=== PATIENT | male | born 1985 | race Caucasian/White ===

== ENCOUNTER 2019-10-16 17:58 | Emergency (ER) | payer SELFPAY ==
--- NOTE | 2019-10-16 18:33 | ER Document Report ---
ED Medical Screen (RME) - General Chief Complaint: Anxiety Stated Complaint: ANXIETY Time Seen by Provider: 10/16/19 18:27 Mode of Arrival: Ambulatory Information source: Patient Notes: 33-year-old male presented to ED for a anxiety attack while at work. He is from out of town and is now working on the [employer] in this area. He states he was having chest pain and feeling very weak while at work. States he was in the he was in the [employer] in the back speaking with the manager bar when he told the manager bar that he was having hard time breathing and he was chest was hurting and he states the manager bar threw him out of the back and then called 911. EMS stated when they found him he was laying outside at the [employer]. His glucose was 120 and according to EMS he was stating that the street signs were talking to him. He states while he was laying on the ground at the [employer] someone spilled some form of green hose on him and that is lasting he remembers. I have greeted and performed a rapid initial assessment of this patient. A comprehensive ED assessment and evaluation of the patient, analysis of test results and completion of medical decision making process will be conducted by an additional ED providers. - Related Data Allergies/Adverse Reactions: No Known Allergies Allergy (Verified 10/16/19 18:27)
[2019-10-16 18:40] VITALS: BP 135/81
--- NOTE | 2019-10-16 19:24 | ER Document Report ---
ED General - General Chief Complaint: Anxiety Stated Complaint: ANXIETY Time Seen by Provider: 10/16/19 18:27 Mode of Arrival: Ambulatory TRAVEL OUTSIDE OF THE [place] IN LAST 30 DAYS: No - HPI Notes: Mr. Sandy is a 33-year-old male with a chief complaint of transient altered mental status. This gentleman lives in [place] and is working with a traveling paint crew. 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 He admits that he has been smoking a large amount of marijuana every day and has been smoking today. He also expresses concern that 1 of the other individuals with his work crew might have slipped some kind of an adult run into a bottle of water he was drinking from earlier. The patient apparently gave the appearance of having hallucinations and the resident manager of the fast [employer] restaurant called EMS to the scene. EMS noted that patient was lying behind the building on the ground when they arrived and reported that look like the street signs were waving back and forth. They did not administer any medications to him but transported him here. Patient says he has had one similar episode over 5 years ago and at that time he was told that he had a panic attack. He currently denies any homicidal/suicidal ideations. He denies consumption of alcohol. He denies taking illicit drugs other than marijuana. He denies any prior mental health history. He says that he was "seeing some odd things" earlier with regard to the street signs but says this is all resolved since he arrived here. He expresses his desire to leave the premises without further evaluation at this time. - Related Data Allergies/Adverse Reactions: No Known Allergies Allergy (Verified 10/16/19 18:27) Past Medical History - General Information source: Patient - Social History Smoking Status: Current Every Day Smoker Chew tobacco use (# tins/day): No Frequency of alcohol use: None Drug Abuse: Cocaine, Marijuana Family History: Reviewed & Not Pertinent Patient has suicidal ideation: No Patient has homicidal ideation: No Review of Systems - Review of Systems Notes: Constitutional: Negative for fever. HENT: Negative for sore throat. Eyes: Negative for visual changes. Cardiovascular: No current chest pain. Respiratory: Negative for shortness of breath. Gastrointestinal: Negative for abdominal pain, vomiting or diarrhea. Genitourinary: Negative for dysuria. Musculoskeletal: Negative for back pain. Skin: Negative for rash. Neurological: Negative for headaches, weakness or numbness. 10 point ROS negative except as marked above and in HPI. Physical Exam - Vital signs Vitals: Temp Pulse Resp BP Pulse Ox 98.1 F 71 16 135/82 H 100 10/16/19 18:27 10/16/19 18:27 10/16/19 18:27 10/16/19 18:27 10/16/19 18:27 - Notes Notes: GENERAL: Well-developed well-nourished appearing mildly anxious but otherwise in no acute distress. SKIN: Good turgor no rashes. HEAD: Normocephalic atraumatic. EYES: PERRLA. Conjunctivae and sclerae clear. EARS: CANALS AND TMS CLEAR. NOSE: CLEAR. MOUTH: Moist mucosa. Good dentition. No stridor or edema. No drooling. NECK: Supple. No masses or thyromegaly. No adenopathy. Carotids 2+ without bruits. No JVD. BACK: Symmetrical without tenderness. CHEST: Respirations unlabored. Breath sounds clear and symmetrical. HEART: Regular rhythm. No murmur gallop or rub. ABDOMEN: Soft nontender without masses, organomegaly or rebound. Bowel sounds normally active. No bruits. GENITALIA: Deferred. EXTREMITIES: No edema. No calf tenderness. Cap refill less than 1.5 seconds. Dorsalis pedis and posterior tibial pulses 3+ and symmetrical. NEUROLOGICAL: GCS 15. Alert and oriented x3. Normal gait. Fluent speech. Cranial nerves II through XII intact. Sensorimotor and cerebellar normal. Normal tone. Course - Re-evaluation Re-evalutation: 10/16/19 19:29 Patient expresses desire to leave at this time and does not want blood work, urine testing or EKG. We talked about potential risks of leaving AGAINST MEDICAL ADVICE. At this time however he is fully oriented and appears competent to make his own decision. I have allowed him to sign out AGAINST MEDICAL ADVICE and advised him that he may return here immediately for reevaluation should he change his mind. Strongly advised him against smoking marijuana or using other illicit substances. - Vital Signs Vital signs: Temp Pulse Resp BP Pulse Ox 98.1 F 71 16 135/81 H 100 10/16/19 18:33 10/16/19 18:33 12/07/19 18:33 10/16/19 18:33 10/16/19 18:33 Discharge - Discharge Clinical Impression: Transient altered mental status Condition: Stable Disposition: AGAINST MEDICAL ADVICE Instructions: Anxiety (OM) Additional Instructions: Do not smoke marijuana. Return here as needed for new or worsening symptoms or if you wish reevaluation or further evaluation.
== END 2019-10-16 19:34 | disposition left against medical advice (07) ==
LOC: ER 17:58
DX: R41.82 Altered mental status, unspecified (principal); F41.9 Anxiety disorder, unspecified; R00.2 Palpitations; F12.90 Cannabis use, unspecified, uncomplicated; F17.200 Nicotine dependence, unspecified, uncomplicated
CPT/HCPCS: 99283

== ENCOUNTER 2019-10-16 19:47 | Emergency (ER) | payer SELFPAY ==
[2019-10-16 20:56] LABS: APPEARANCE,URINE CLEAR; BILIRUBIN,URINE NEGATIVE (NEGATIVE); COLOR,URINE YELLOW; GLUCOSE, URINE NEGATIVE (NEGATIVE); KETONES,URINE 20 mg/dL (NEGATIVE); LEUKOCYTE ESTERASE,URINE NEGATIVE (NEGATIVE); NITRITE,URINE NEGATIVE (NEGATIVE); PROTEIN,URINE NEGATIVE (NEGATIVE); URINE SPECIFIC GRAVITY 1.021
[2019-10-16 21:10] LABS: ABSOLUTE BASOPHILS # (AUTO) 0.1 10^3/uL (0.0-0.2); ABSOLUTE EOSINOPHILS # (AUTO) 0.3 10^3/uL (0.0-0.6); ABSOLUTE LYMPHOCYTES (AUTO) 1.8 10^3/uL (0.5-4.7); ABSOLUTE MONOCYTES (AUTO) 0.9 10^3/uL (0.1-1.4); ABSOLUTE NEUT (AUTO) 7.6 10^3/uL (1.7-8.2); BASOPHILS % (AUTO) 0.9 % (0-2); EOSINOPHILS % (AUTO) 3.1 % (0-6); HEMATOCRIT 45.1 % (37.9-51.0); HEMOGLOBIN 15.5 g/dL (13.5-17.0); LYMPHOCYTES % (AUTO) 16.7 % (13-45); MEAN CORPUSCULAR HEMOGLOBIN 28.7 pg (27.0-33.4); MEAN CORPUSCULAR HGB CONC 34.3 g/dL (32.0-36.0); MEAN CORPUSCULAR VOLUME 84 fl (80-97); MONOCYTES % (AUTO) 8.3 % (3-13); PLATELET COUNT 228 10^3/uL (150-450); RED BLOOD COUNT 5.38 10^6/uL (4.35-5.55); RED CELL DISTRIBUTION WIDTH 13.3 % (11.5-14.0); TOTAL CELLS COUNTED % (AUTO) 100 %; WHITE BLOOD COUNT 10.7 10^3/uL (4.0-10.5)
[2019-10-16 21:32] LABS: ALBUMIN 4.7 g/dL (3.5-5.0); ALKALINE PHOSPHATASE 79 U/L (38-126); ANION GAP 13 (5-19); ASPARTATE AMINO TRANSFERASE 40 U/L (17-59); BILIRUBIN,DIRECT 0.2 mg/dL (0.0-0.4); BILIRUBIN,TOTAL 1.2 mg/dL (0.2-1.3); BLOOD UREA NITROGEN 16 mg/dL (7-20); CALCIUM 9.6 mg/dL (8.4-10.2); CARBON DIOXIDE 24 mmol/L (22-30); CHLORIDE 104 mmol/L (98-107); GLUCOSE 91 mg/dL (75-110); TOTAL PROTEIN 8.1 g/dL (6.3-8.2)
--- NOTE | 2019-10-16 21:32 | ER Document Report ---
ED Psych Disorder / Suicide - General Chief Complaint: Psych Problem Stated Complaint: PSYCH EVAL Time Seen by Provider: 10/16/19 20:08 Notes: Kanu Guzman is a 33 yo m w/ PMH of anxiety brought into the ED by EMS for a panic attack. Patient states that he actually lives in [place] and works as a travel contractor. He is here at [employer] and they were supposed to be painting the railing. Patient states that he has been missing his dog excessively rate lately and wanted to get done with painting the railing as soon as possible so they can get back to [place]. He states that he started getting into an argument with his ship supervisor functional testing who then complained to his regular boss. In addition, the patient states that he has been excessively thirsty all day long but did not get much eat or drink so when he was drinking his vitamin water, it tasted slightly abnormal to him. He then got on the phone with his actual boss, not the third shift lieutenant and he started an argument. He felt the vitamin water tasted funny and could have been "drugged" with something in it. He endorses racing thoughts, shortness of breath and some difficulty breathing. This only lasted several minutes before it subsided. The people on scene called 911 and brought into the ED for evaluation. He denies any alcohol use. TRAVEL OUTSIDE OF THE [place] IN LAST 30 DAYS: No - Related Data Allergies/Adverse Reactions: No Known Allergies Allergy (Verified 10/16/19 18:27) Past Medical History - Social History Smoking Status: Current Every Day Smoker Frequency of alcohol use: Rare Drug Abuse: Marijuana Family History: Reviewed & Not Pertinent Patient has suicidal ideation: No Patient has homicidal ideation: No Review of Systems - Review of Systems Constitutional: See HPI EENT: No symptoms reported Cardiovascular: No symptoms reported Respiratory: No symptoms reported Gastrointestinal: No symptoms reported Genitourinary: No symptoms reported Male Genitourinary: No symptoms reported Musculoskeletal: No symptoms reported Skin: No symptoms reported Hematologic/Lymphatic: No symptoms reported Neurological/Psychological: See HPI Physical Exam - Vital signs Vitals: Temp Pulse Resp BP Pulse Ox 98.1 F 83 16 151/96 H 98 10/16/19 19:51 10/16/19 19:51 10/16/19 19:51 10/16/19 19:51 10/16/19 19:51 Course - Re-evaluation Re-evalutation: Patient is generally well-appearing nontoxic. Initial vitals notable for elevated blood pressure. 10/17/19 00:06 CBC CMP and UA within normal limits. Urine tox is positive for marijuana which the patient did endorse. It is unclear whether the patient's amphetamines is positive or negative as some other substances interfered and we received a call from the lab. Upon reevaluation, the patient is comfortably asleep and resting. At this point in time I do not feel that a psych consult is necessary as the patient does not seem to be a danger to himself or others. He denies SI, HI and does not show any evidence of hallucinations. Initially his story was slightly erratic however upon request for him to speak more clearly in a linear fashion, he was able to do so without any issues. Will allow to rest. When he awakes, will DC with return precautions. 10/17/19 01:32 Patient awoke from his nap. He states he feels significantly improved. Requesting to be discharged. At this point there is no indication to hold this patient involuntarily as he does not seem to be a risk to himself or others and denies any SI, HI. Patient given return precautions and instructed to follow-up with his primary care doctor. He was also instructed to get a good night rest. - Vital Signs Vital signs: Temp Pulse Resp BP Pulse Ox 98.1 F 89 16 151/96 H 98 10/16/19 20:07 10/16/19 20:07 10/16/19 20:07 10/16/19 20:07 10/16/19 20:07 - Laboratory Result Diagrams: 10/16/19 20:56 10/16/19 20:56 Laboratory results interpreted by me: 10/16/19 10/16/19 20:38 20:56 WBC 10.7 H Urine Ketones 20 H Urine Urobilinogen 2.0 H - EKG Interpretation by Me EKG shows normal: Sinus rhythm, Mobile, Intervals, QRS Complexes Rate: Normal Rhythm: NSR When compared to previous EKG there are: Previous EKG unavailable Additional EKG results interpreted by me: 10/16/19 21:32 Inverted Twave in V1 Discharge - Discharge Clinical Impression: Stress at work, Problems related to lack of adequate sleep Condition: Good Disposition: HOME, SELF-CARE Additional Instructions: It is important that you get 7-8 8 hours of sleep regularly. Lack of sleep can cause increased stress, altered mood, and even hallucination. Make sure you eat 2-3 meals daily. Follow-up with your primary care doctor as needed. If you have thoughts of hurting herself or anyone else, please return to the ED for further evaluation.
[2019-10-16 21:44] LABS: URINE BARBITURATES SCREEN NEGATIVE; URINE BENZODIAZEPINES SCREEN NEGATIVE; URINE COCAINE SCREEN NEGATIVE; URINE METHADONE SCREEN NEGATIVE; URINE PHENCYCLIDINE SCREEN NEGATIVE
[2019-10-16 21:50] LABS: URINE MARIJUANA (THC) SCREEN UNCONFIRMED POSITIVE
[2019-10-17 01:56] VITALS: BP 123/85
--- NOTE | 2019-10-17 12:01 | EKG REPORT ---
SEVERITY:- NORMAL ECG - SINUS RHYTHM : Confirmed by: Abeba Chawla MD 17-Oct-2019 12:01:29
== END 2019-10-17 01:51 | disposition home or self-care (01) ==
LOC: ER 19:47
DX: F43.9 Reaction to severe stress, unspecified (principal); Z72.820 Sleep deprivation; F41.0 Panic disorder [episodic paroxysmal anxiety]; F41.9 Anxiety disorder, unspecified; F17.200 Nicotine dependence, unspecified, uncomplicated
CPT/HCPCS: 36415; 80053; 80307; 81001; 84484; 85025; 93005; 93010; 99284